=== PATIENT | female | born 1980 | race Caucasian/White ===

== ENCOUNTER 2017-04-03 18:17 | Emergency (ER) | payer OTHER, BC ==
--- NOTE | 2017-04-03 18:18 | EDPHY ---
H & P HPI/ROS: CHIEF COMPLAINT: Alcohol intoxication HISTORY OF PRESENT ILLNESS: This patient is a 36 year old female arriving via EMS this evening at 18:15. Per EMS, she was asked to leave the [facility] on [facility] due to failure to extend her stay. EMS states [facility] staff reported that she left and sat next to her car and refused to speak with them, and had a possible witnessed fall. She is quite tearful and emotional, and has two large bumps on her forehead. She responds to questions with "right now I don't feel like talking about it". EMS reports she admitted to alcohol use, but denied drug use or past medical history. REVIEW OF SYSTEMS: A ten point review of systems was performed and is negative with the exception of the items mentioned in the HPI. (Ariadne Elder) - Medical/Surgical History PMH: Denies (Ariadne Elder) - Social History Additional Social History: Alcohol use. Denies drug use. Recently staying at the [facility] in [place]. ( Ariadne Elder) - Physical Exam Exam: General Appearance: Alert. Vital signs reviewed. * Eyes: Pupils equal and round, no conjunctival injection, no discharge. Anicteric. ENT, Mouth: Mucous membranes are moist, no oropharyngeal erythema or edema. Neck: No lymphadenopathy, supple. Respiratory: Lungs are clear to auscultation; no wheezes, rales, or rhonchi. Cardiovascular: Regular rate and rhythm; no murmur, rub, or gallop. Gastrointestinal: Abdomen is soft and nontender, no masses or organomegaly, bowel sounds normal. Skin: Warm and dry, no rashes on exposed skin, normal color. Back: Nontender to palpation over the thoracolumbar spine. No CVAT. Extremities: No lower extremity edema, no calf tenderness or swelling. Neurological: Alert and oriented. Moving all four extremities easily and equally. Psychiatric: Normal affect. (Ariadne Elder) Constitutional: Initial Vital Signs Temperature (C) 36.3 C 04/03/17 18:57 Heart Rate 74 04/03/17 18:57 Respiratory Rate 22 H 04/03/17 18:57 Blood Pressure 132/85 H 04/03/17 18:57 O2 Sat (%) 94 04/03/17 18:57 O2 Delivery Mode Room Air Allergies/Adverse Reactions: No Known Allergies Allergy (Unverified 04/03/17 20:19) Medical Decision Making ED Course/Re-evaluation: This patient is a 36 year old female arriving via EMS presenting with alcohol intoxication and . She has two large bumps on her forehead, and states she doesn 't want to talk about how they occurred at this time. Nursing staff report she is unwilling to change out of her wet clothing or allow care procedures. She is quite sad, under-talkative, and not responding appropriately to my questioning. 18:48 patient stated to the nurse that she wants to kill herself. Patient will be placed on M1 hold. 9:15 p.m.: Patient's drug screen is positive for marijuana. Her blood alcohol level is 421. She has been placed on an M1 hold. It is my suspicion that when she is sober she might provide additional history. It is difficult to tell whether she is truly suicidal or whether this is the affect of acute alcohol intoxication. Her care will be transferred to Dr. Deal at 10 p.m.. (Ariadne Elder) [id number]: Patient still sobering. Alcohol level still high. But improved. Will need mental health evaluation after sober. Signed over to Dr. Quezada at 7am shift change. (Lalo Deal) Other Provider: Care assumed at 7:00 a.m. with plan for repeat evaluation when clinically sober. 735: Patient re-evaluated and is tearful but denies suicidal ideation. She is currently homeless until she can move in her condominium in April. She does have a job and says she would never hurt herself intentionally. Clinically sober, not ataxic, no medical complaints. I think it is appropriate to lift her mental health hold at this time. At this point I do not think she meets criteria for 72 hour hold as she does not appear to be danger to herself or others or gravely disabled. (Sundeep Quezada) - Data Points Laboratory Results: Laboratory Results 04/03/17 20:19 04/03/17 20:19 Medications Given: Discontinued Medications Lorazepam (Ativan) 1 mg PO EDNOW ONE Stop: 04/03/17 18:34 Last Admin: 04/03/17 18:57 Dose: 1 mg Departure - Departure Disposition: Home, Routine, Self-Care Clinical Impression: Alcoholic intoxication Condition: Good Instructions: Alcohol Intoxication (ED) Referrals: Patient,NotPresent [Primary Care Provider] - As per Instructions Dr. Ysabel [Other] - As per Instructions (your PCP at [place]) Stand Alone Forms: Work Excuse Report Scribed for: Ariadne Elder Report Scribed by: Annemarie Brito Date of Report: 04/03/17 Time of Report: 19:03 Physician Review and Approval Statement: 04/03/17 18:18 Portions of this note were transcribed by the medical equipment sales. I, Dr. Ariadne Elder, personally performed the history, physical exam, and medical decision- making; and confirmed the accuracy of the information in the transcribed note. ( Ariadne Elder)
[2017-04-03] MEDS ORDERED: LORazepam 1 MG TAB PO ONE (18:33)
[2017-04-03 20:32] LABS: % IMMATURE GRANULYOCYTES 0.7 % (0.0-1.1); ABSOLUTE IMMATURE GRANULOCYTES 0.07 10^3/uL (0.00-0.10); ADD DIFF? NO; ADD MORPH? NO; ADD SCAN? NO; ATYPICAL LYMPHOCYTE FLAG 10 (0-99); FRAGMENT RBC FLAG 0 (0-99); HEMATOCRIT 51.1 % (38.0-47.0); HEMOGLOBIN 17.5 g/dL (12.6-16.3); LEFT SHIFT FLG 0 (0-99); LIPEMIA HEMOLYSIS FLAG 90 (0-99); MEAN CELL HEMOGLOBIN 29.9 pg (27.9-34.1); MEAN CELL HEMOGLOBIN CONCENTR. 34.2 g/dL (32.4-36.7); MEAN CELL VOLUME 87.4 fL (81.5-99.8); PLATELET CLUMPS FLAG 0 (0-99); PLATELET COUNT 305 10^3/uL (150-400); RED BLOOD CELL COUNT 5.85 10^6/uL (4.18-5.33); RED CELL DISTRIBUTION WIDTH 16.5 % (11.5-15.2)
[2017-04-03 20:47] LABS: ANION GAP 18 mEq/L (8-16); CALCIUM 8.3 mg/dL (8.5-10.4); CARBON DIOXIDE 22 mEq/l (22-31); CHLORIDE 105 mEq/L (97-110); CREATININE 0.6 mg/dL (0.6-1.0); GLOMERULAR FILTRATION RATE > 60; GLUCOSE 117 mg/dL (70-100); POTASSIUM 4.3 mEq/L (3.5-5.2); SALICYLATE < 1.0 mg/dL (2.0-20.0); SODIUM 145 mEq/L (134-144)
[2017-04-03 21:05] LABS: ETHANOL SERUM 421 mg/dL (0-10)
[2017-04-04 06:14] VITALS: TEMP 98.1
[2017-04-04 07:59] VITALS: BP 121/72; PULSE 78; RESP 18; O2SAT 98
== END 2017-04-04 08:17 | disposition home or self-care (01) ==
LOC: EDUNIT#
DX: F10.129 Alcohol abuse with intoxication, unspecified (principal)
CPT/HCPCS: 80305; G0480